=== PATIENT | male | born 1975 | race Caucasian/White ===

== ENCOUNTER 2017-09-29 09:12 | Observation (INO) ==
--- NOTE | 2017-09-29 09:32 | Emergency Department Note ---
Disposition Clinical Impression: TIA (transient ischemic attack) Qualifiers: Transient cerebral ischemia type: unspecified Qualified Code(s): G45.9 - Transient cerebral ischemic attack, unspecified Disposition: Admitted As Inpatient Condition: Good Referrals: NONE,PCP [Primary Care Provider] - Forms: ED Satisfaction Letter Time of Disposition: 10:12 Neuro HPI - General Chief Complaint: ED Neuro Symptoms/Deficit Stated Complaint: Left sided numbness Time Seen by Provider: 09/29/17 09:19 Source: patient Mode of arrival: ambulatory Limitations: no limitations Nursing Notes Reviewed: Yes Vital Signs Reviewed: Yes - History of Present Illness HPI Narrative: 42-year-old with a onset of left arm numbness left facial numbness that started 45 minutes prior to arrival. Denies any weakness. Denies any visual changes. Onset of Symptoms Date: 09/29/17 Onset of Symptoms Time: 08:30 Timing confirmed by: spouse Location: left face ((), left arm (Numbness) Symptoms Improving: No Improves with: none Worsens with: none Context: sudden onset On Anticoagulants: No Associated symptoms: Reports: denies other symptoms Treatments Prior to Arrival: none - Related Data Allergies/Adverse Reactions: Allergies Allergy/AdvReac Type Severity Reaction Status Date / Time No Known Allergies Allergy Verified 09/29/17 09:27 All systems ED: reviewed and negative except as stated. Constitutional: Denies: fever, chills, weakness, weight change Eyes: Denies: eye pain, eye discharge, vision change ENT ED: Denies: ear pain, throat pain, dental pain, hearing loss, epistaxis, congestion, dysphagia Cardiovascular: Denies: chest pain, palpitations, dyspnea on exertion, edema, syncope Respiratory: Denies: cough, dyspnea, wheezes, hemoptysis, stridor Gastrointestinal: Denies: abdominal pain, nausea, vomiting, diarrhea, constipation, hematemesis, melena, hematochezia Genitourinary: Denies: urgency, dysuria, frequency, hematuria Musculoskeletal: Denies: back pain, neck pain, arthralgia, myalgia Integumentary: Denies: rash, abrasion, lesions Neurological: Reports: headache, numbness. Denies: weakness, paresthesias, confusion, abnormal gait, vertigo Psychiatric: Denies: anxiety, depression, suicidal thoughts, homicidal thoughts , auditory hallucinations, visual hallucinations Endocrine: Denies: fatigue Hematological/Lymphatic: Denies: easy bleeding, easy bruising Allergic/Immunologic: Denies: facial swelling, urticaria Physical Exam - General Limitations: no limitations - Head Head exam: atraumatic, normocephalic, normal inspection - Eye Eye exam: Present: normal appearance, PERRL, EOMI - ENT ENT exam: normal exam, normal oropharynx, mucous membranes moist - Neck Neck exam: Present: normal inspection, full ROM, trachea midline - Chest Chest inspection: Present: normal inspection, symmetric chest wall rise - Respiratory Respiratory exam: Present: normal lung sounds bilaterally - Cardiovascular Cardiovascular exam: Present: regular rate, normal rhythm, normal heart sounds - Abdominal Exam Abdominal exam: Present: soft, Non-Tender. Absent: tenderness, distention, guarding, rebound, rigidity - Extremities Exam Extremities exam: Present: normal inspection, full ROM. Absent: tenderness, pedal edema - Expanded Lower Extremity Exam Neurovascular/Tendon exam: Absent: motor deficit, sensory deficit, tendon deficit - Back Exam Back exam: Present: normal inspection, full ROM. Absent: tenderness - Neurological Exam Neurological exam: Present: alert, oriented X3, motor sensory deficit (Numbness of the left arm and left face.) - Psychiatric Psychiatric exam: Present: normal affect, normal mood - Skin Skin exam: Present: warm, dry, intact, normal color Course - Reevaluation(s) Reevaluation #1: Or-year-old who comes in complaining of numbness in the left arm and left side of the face. Stroke alert was initiated CT scan was negative. [facility] neurology did not feel the patient metastases TPA criteria. They recommended admission for evaluation possible TIA. Time: 11:12 - Consultations Consultation #1: Stroke alert initiated examine the patient from [facility] and did not feel the patient met criteria for TPA. In addition admission and evaluation for TIA versus stroke. Time: 10:09 Consultation #2: Discussed with , admit. Time: 11:12 Vital Signs Temperature 98.5 F 09/29/17 09:20 Pulse Rate 84 09/29/17 09:20 Respiratory Rate 20 09/29/17 09:20 Blood Pressure 143/100 09/29/17 09:20 O2 Sat by Pulse Oximetry 98 09/29/17 09:20 Temperature 98.5 F 09/29/17 09:20 Pulse Rate 81 09/29/17 10:28 Respiratory Rate 20 09/29/17 10:28 Blood Pressure 144/85 09/29/17 10:28 O2 Sat by Pulse Oximetry 100 09/29/17 10:28 Oxygen Delivery Oxygen Delivery Room Air Neuro Symptoms/Deficit - Lab Data Result diagrams: 09/29/17 10:22 09/29/17 10:22 Lab Results 09/29/17 09/29/17 09/29/17 Range/Units 10:19 10:22 10:22 WBC 8.1 (4.3-11.1) K/mcL RBC 5.29 (4.19-5.50) M/mcL Hgb 15.3 (12.9-16.9) g/dL Hct 46.1 (37.5-50.1) % MCV 87.1 (83.0-100.0) fL MCH 28.9 (28.0-33.3) pg MCHC 33.2 (31.6-35.5) g/dL RDW 12.4 (11.5-14.5) % Plt Count 335 (140-400) K/mcL MPV 10.4 (9.4-12.4) fL Immature Gran % 0.5 (0-4) % Seg Neutrophils % 68.6 % Lymphocytes % 24.3 % Monocytes % 5.6 % Eosinophils % 0.5 % Basophils % 0.5 % Neutrophils # 5.6 (1.6-8.9) K/mcL Lymphocytes # 2.0 (0.6-4.6) K/mcL Monocytes # 0.5 (0.0-1.3) K/mcL Eosinophils # 0.0 (0.0-0.6) K/mcL Basophils # 0.0 (0.0-0.2) K/mcL Nucleated RBCs/100 WBC 0.4 H (0) /100 WBC PT 10.5 (9.4-12.1) Seconds INR 1.0 APTT 30.1 (26.0-36.0) Seconds Sodium (136-145) mEq/L Potassium (3.5-5.1) mEq/L Chloride (98-107) mEq/L Carbon Dioxide (23-29) mEq/L BUN (6-20) mg/dL Creatinine (0.70-1.30) mg/dL Est GFR ( Amer) (> 60) Est GFR (Non-Af Amer) (> 60) BUN/Creatinine Ratio (6-26) Glucose (70-105) mg/dL POC Glucose 107 H (58-89) Calculated Osmolality (280-300) Calcium (8.6-10.3) mg/dL Troponin I (< 0.04) ng/mL 09/29/17 09/29/17 Range/Units 10:22 10:22 WBC (4.3-11.1) K/mcL RBC (4.19-5.50) M/mcL Hgb (12.9-16.9) g/dL Hct (37.5-50.1) % MCV (83.0-100.0) fL MCH (28.0-33.3) pg MCHC (31.6-35.5) g/dL RDW (11.5-14.5) % Plt Count (140-400) K/mcL MPV (9.4-12.4) fL Immature Gran % (0-4) % Seg Neutrophils % % Lymphocytes % % Monocytes % % Eosinophils % % Basophils % % Neutrophils # (1.6-8.9) K/mcL Lymphocytes # (0.6-4.6) K/mcL Monocytes # (0.0-1.3) K/mcL Eosinophils # (0.0-0.6) K/mcL Basophils # (0.0-0.2) K/mcL Nucleated RBCs/100 WBC (0) /100 WBC PT (9.4-12.1) Seconds INR APTT (26.0-36.0) Seconds Sodium 137 (136-145) mEq/L Potassium 4.4 (3.5-5.1) mEq/L Chloride 105 (98-107) mEq/L Carbon Dioxide 25 (23-29) mEq/L BUN 11 (6-20) mg/dL Creatinine 1.16 (0.70-1.30) mg/dL Est GFR ( Amer) > 60 (> 60) Est GFR (Non-Af Amer) > 60 (> 60) BUN/Creatinine Ratio 9 (6-26) Glucose 123 H (70-105) mg/dL POC Glucose (58-89) Calculated Osmolality 285 (280-300) Calcium 9.2 (8.6-10.3) mg/dL Troponin I < 0.03 (< 0.04) ng/mL NIH Stroke Scale - Level of Consciousness LOC: Alert - LOC Questions LOC Questions: Answers both correctly - LOC Commands LOC Commands: Performs both correctly - Best Gaze Best Gaze: Normal - Visual Visual: No visual loss - Facial Palsy Facial Palsy: Normal - Motor Arms Motor Arm-Left: No drift for 10 seconds Motor Arm-Right: No drift for 10 seconds - Motor Legs Motor Leg-Left: No drift for 5 seconds Motor Leg-Right: No drift for 5 seconds - Limb Ataxia Limb Ataxia: Normal, No Ataxia - Sensory Sensory: Mild to moderate loss, "not as sharp" - Best Language Best Language: No aphasia - Dysarthria Dysarthria: Normal - Extinction and Inattention Extinction and Inattention: Normal - NIHSS Total Score NIHSS Total Score: 1 TPA Checklist - Eligibilty for IV tPA 1. LKW equal to or less than 4.5 hours be before treatment: Yes 2. Clinical diagnosis of ischemic stroke causing deficit: Yes - LKW: 3-4.5 hrs Add. Warnings/Precautions Patient/family understanding: The patient/family members have been counseled and understood the risk, benefit , and alternatives of treatment. Critical Care Time Critical Care Time: Yes Total Critical Care Time: 30 Attestation: The high probability of a clinically significant, sudden or life threatening deterioration of the [neurological] system(s) required my full and direct attention, intervention and personal management. The aggregate critical care time was [30] minutes. This time is in addition to time spent performing reported procedures but includes the following: [x] Data Review and interpretation [x] Patient assessment and monitoring of vital signs [x] Documentation [x] Medication orders and management
[2017-09-29 10:43] LABS: Basophils % 0.5 %; Eosinophils % 0.5 %; Hematocrit 46.1 % (37.5-50.1); Hemoglobin 15.3 g/dL (12.9-16.9); Immature Granulocytes % 0.5 % (0-4); Lymphocytes % 24.3 %; Mean Corpuscular HGB Conc 33.2 g/dL (31.6-35.5); Mean Corpuscular Hemoglobin 28.9 pg (28.0-33.3); Mean Corpuscular Volume 87.1 fL (83.0-100.0); Mean Platelet Volume 10.4 fL (9.4-12.4); Monocytes # 0.5 K/mcL (0.0-1.3); Monocytes % 5.6 %; Neutrophils # 5.6 K/mcL (1.6-8.9); Nucleated Red Blood Cells 0.4 /100 WBC (0); Platelet Count 335 K/mcL (140-400); Red Blood Count 5.29 M/mcL (4.19-5.50); Red Cell Distribution Width 12.4 % (11.5-14.5); Segmented Neutrophils % 68.6 %
[2017-09-29 10:57] LABS: Prothrombin Time 10.5 Seconds (9.4-12.1)
[2017-09-29 10:59] LABS: BUN/Creatinine Ratio 9 (6-26); Blood Urea Nitrogen 11 mg/dL (6-20); Calcium 9.2 mg/dL (8.6-10.3); Carbon Dioxide 25 mEq/L (23-29); Chloride 105 mEq/L (98-107); Glucose 123 mg/dL (70-105); Osmolality,Calculated 285 (280-300); Potassium 4.4 mEq/L (3.5-5.1); Sodium 137 mEq/L (136-145); eGFR For African Americans > 60 (> 60); eGFR For Non-African Americans > 60 (> 60)
[2017-09-29 11:00] LABS: Activated Partial Thrombo Time 30.1 Seconds (26.0-36.0)
[2017-09-29] MEDS ORDERED: Naloxone 0.4 MG/ML INJ IVP PRN (11:50)
--- NOTE | 2017-09-29 12:02 | Internal Med History&Physical ---
<Marvin Hallman - Last Filed: 09/29/17 14:48> Date of Encounter: 09/29/17 Time of Encounter: 11:54 Assessment and Plan (1) TIA (transient ischemic attack) Current visit: Yes Status: Acute Presents with acute onset of left facial and left extremity numbness and tingling without extremity weakness. All vital signs stable at this time, symptoms have now subsided. I suspect he may have had a TIA. No prior history of CVA/TIA. [facility] stroke team was consulted while in the emergency department and decided the patient was not a candidate for thrombolysis. -Stat CT negative for acute intracranial abnormalities -MRI head/brain without contrast this afternoon -BL Carotid doppler -TTE now -Start ASA -Start statin 40 mg now -CBC, BMP,, Lipid panel in am -Initial NIHSS 1 -Neuro checks q-shift -ambulate TID for DVT prophylaxis Qualifiers: Transient cerebral ischemia type: unspecified Qualified Code(s): G45.9 - Transient cerebral ischemic attack, unspecified Internal Medicine - H&P: HPI Chief complaint: lt side numbness and tingling Admitted From: Home Plans for Post Hospital Care: Home History of present illness: Mr. Frazier is a 42 year old male with no known past medical history. Presents today the left sided numbness and tingling and sharp chest pain which began approximately 45 minutes [employer]. His symptoms have subsided as of my assessment. He reports that this morning he began experiencing numbers and tingling in his LUE and Lt face as well as non-exertional, sharp intermittent chest pain. He reports that the chest pain was not exacerbated with activity and did not improve with rest. Reporting that it was sharp and intermittent and caused mild shortness of breath. He has not prior h/o TIA/CVA, and also no family history. No h/o CAD or [place]. He admits to h/a which began last night and has since subsided, blurred vision and n/t on LUE and LT fact. He denies any gait ataxia, slurred speech, facial droop, extremity weakness, fevers, chills, or constitutional symptoms. Past Med Surg Social Fam HX - Past Medical History Medical history: no medical history Psychiatric history: no psych history - Social History Smoking Status: Former smoker Smokeless Tobacco Status: Yes Alcohol use: occasionally Drug use: none - Additional Family History Additional family history: Reports no family history Internal Medicine - H&P: Meds No Known Home Drugs 09/29/17 [History] 3 Allergy/AdvReac Type Severity Reaction Status Date / Time No Known Allergies Allergy Verified 09/29/17 09:27 All Systems PM: A 10-system review of systems was performed and is negative for pertinent findings except as documented above in the HPI. - Constitutional Constitutional: no chills, no fever(s), no night sweats - EENT Eyes: no change in vision, no discharge, no pain, no photophobia Ears: no ear discharge, no ear pain, no tinnitus Nose, mouth and throat: no dysphagia, no nasal discharge, no neck pain, no sore throat - Cardiovascular Cardiovascular ROS IM: no chest pain, no diaphoresis, no dyspnea, no lightheadedness, no palpitations, no syncope - Respiratory Respiratory: no cough, no dyspnea, no wheezing, no excessive phlegm production - Gastrointestinal Gastrointestinal: no abdominal pain, no diarrhea, no hematemesis, no hematochezia, no melena, no nausea, no vomiting - Musculoskeletal Musculoskeletal ROS IM: no numbness, no tingling - Integumentary Integumentary IM: no rash, no unusual bruising - Neurological Neurological ROS: as per HPI, headache(s), numbness, tingling, no abnormal gait , no abnormal hearing, no abnormal movements, no abnormal speech, no behavioral changes, no confusion, no convulsions, no dizziness, no focal weakness, no lack of coordination, no loss of vision, no memory loss, no tremor(s), no vertigo, no weakness - Hematologic/Lymphatic Hematologic/Lymphatic: no easy bruising - Constitutional Vitals: Temp Pulse Resp BP Pulse Ox 98.5 F 74 20 129/86 97 09/29/17 09:20 09/29/17 11:30 09/29/17 11:30 09/29/17 11:30 09/29/17 11:30 General appearance: Present: cooperative, A&O X 3, no acute distress, answers questions appropriately - Head Head exam: Present: atraumatic, normocephalic - Eye Eye exam: Present: PERRL, conjuntiva pink, sclera anicteric Pupils: Present: PERRL - Neck Neck exam general surgery: Present: supple, trachea midline. Absent: lymphadenopathy - Respiratory Respiratory exam: Present: CTAB. Absent: accessory muscle use, rales, rhonchi, wheezes - Cardiovascular Cardiovascular exam: Present: RRR, +S1, +S2. Absent: diastolic murmur, gallop, rubs, systolic murmur - GI/Abdominal GI/Abdominal exam: Present: normal bowel sounds, soft, no peritoneal signs. Absent: distended, tenderness - Extremities Exam Extremities exam: Present: warm, radial pulses palpable and symmetrical. Absent : calf tenderness, cyanotic, pedal edema - Neurological Exam Neurological exam: Present: CN II-XII intact, oriented X3, no focal deficits. Absent: pronater drift, facial droop, speech deficit - Skin Skin exam: Present: dry, intact Internal Med - H&P Results - Labs CBC & Chem 7: 09/29/17 10:22 09/29/17 10:22 Labs: Short CBC 09/29/17 Range/Units 10:22 WBC 8.1 (4.3-11.1) K/mcL Hgb 15.3 (12.9-16.9) g/dL Hct 46.1 (37.5-50.1) % Plt Count 335 (140-400) K/mcL Neutrophils # 5.6 (1.6-8.9) K/mcL BMP 09/29/17 10:22 Sodium 137 Potassium 4.4 Chloride 105 Carbon Dioxide 25 BUN 11 Creatinine 1.16 Glucose 123 H Calcium 9.2 Cardiac Enzymes 09/29/17 Range/Units 10:22 Troponin I < 0.03 (< 0.04) ng/mL - EKG Data EKG shows normal: sinus rhythm Rate: tachycardia - EKG Data Prior EKG available for review: no Interpretation IM: other - Impressions ITS Impressions Head CT 09/29/17 09:23 IMPRESSION: 1. No acute intracranial abnormality. These findings were discussed with Dr Gonzalse at 9:50 a.m. 09/29/2017. D/ / Bertin Vasquez MD / Bertin Vasquez MD Interpreting Provider: Bertin Vasquez MD <Mike Che T - Last Filed: 09/29/17 15:03> Date of Encounter: 09/29/17 Internal Medicine - H&P: HPI History of present illness: Mr. Frazier is a 42 year old male All Systems PM: A 10-system review of systems was performed and is negative for pertinent findings except as documented above in the HPI. - Constitutional Vitals: Temp Pulse Resp BP Pulse Ox 98.5 F 79 20 130/86 97 09/29/17 09:20 09/29/17 13:00 09/29/17 13:00 09/29/17 13:00 09/29/17 13:00 Internal Med - H&P Results - Labs CBC & Chem 7: 09/29/17 10:22 09/29/17 10:22 - Attending Attestation Seen and examined independently 42 M patient with L sided numbness which had reseolved at time of review. No deficits neurologically at time of review No risk factors for CVA Agree with TIA work up Rest of details as in HO Hallman documentation
[2017-09-29] MEDS: Aspirin 81 MG TAB.CHEW PO SCH (16:34)
[2017-09-30] MEDS ORDERED: *HR* LORazepam 1 MG TABLET PO ONE (02:13)
[2017-09-30 05:43] LABS: Hematocrit 46.3 % (37.5-50.1); Hemoglobin 15.1 g/dL (12.9-16.9); Mean Corpuscular HGB Conc 32.6 g/dL (31.6-35.5); Mean Corpuscular Hemoglobin 28.9 pg (28.0-33.3); Mean Corpuscular Volume 88.7 fL (83.0-100.0); Mean Platelet Volume 10.5 fL (9.4-12.4); Platelet Count 290 K/mcL (140-400); Red Blood Count 5.22 M/mcL (4.19-5.50); Red Cell Distribution Width 12.5 % (11.5-14.5)
[2017-09-30 06:03] LABS: BUN/Creatinine Ratio 8 (6-26); Blood Urea Nitrogen 9 mg/dL (6-20); Calcium 8.7 mg/dL (8.6-10.3); Carbon Dioxide 26 mEq/L (23-29); Chloride 107 mEq/L (98-107); Cholesterol 144 mg/dL (< 200); Glucose 113 mg/dL (70-105); HDL Cholesterol 36 mg/dL (40-59); LDL Cholesterol,Calculated 98 mg/dL (0-99); Osmolality,Calculated 287 (280-300); Potassium 4.1 mEq/L (3.5-5.1); Sodium 139 mEq/L (136-145); Triglycerides 52 mg/dL (< 150); eGFR For African Americans > 60 (> 60); eGFR For Non-African Americans > 60 (> 60)
[2017-09-30] MEDS: Aspirin 81 MG TAB.CHEW PO SCH (08:10)
[2017-09-30 11:30] VITALS: BP 135/75
--- NOTE | 2017-09-30 16:07 | Neurology - Consult Note ---
<LesterLazaro Durham - Last Filed: 09/30/17 16:04> Date of Encounter: 09/30/17 Time of Encounter: 16:09 Assessment and Plan (1) Complicated migraine Status: Acute Patient appears to have common migraine with headache associated with neurologic symptoms that resolved on the room. Neuro imaging including MRI and CT head were unremarkable. Carotid Dopplers were also preliminarily read as negative. TIAs in the differential however this is much less likely given his relatively young age and lack of risk factors including diabetes and hypertension. He does report frequent headaches so we would recommend starting low-dose amitriptyline 25 mg daily at bedtime. Patient can follow-up in 3-4 weeks in the outpatient neurology clinic. History of Present Illness Chief complaint: Numbness/tingling HPI: Mr. Frazier is a 42 year old male with no significant medical history who presents with left arm and face numbness and tingling. Patient states that yesterday the symptoms came on suddenly while he was driving. He states that it felt like his arms going numb from where he rested his elbow on the armrest however his symptoms did not go away when he reposition his arm. He states this was associated with a headache. He states the symptoms lasted about 3 hours and resolved spontaneously. He states he has never had these symptoms before. He denies any weakness or motor difficulty. He denies any speech changes. He reports that he has headaches about once a month but he is a never had numbness and tingling associated with these. He denies any family history of neurologic or headache disorders. Past Med Surg Social Fam HX - Past Medical History Medical history: no medical history Psychiatric history: no psych history - Social History Smoking Status: Former smoker Smokeless Tobacco Status: Yes Alcohol use: occasionally Drug use: none - Family History Mother Hx Family Cardiac Disorders: Yes Medications and Allergies Amitriptyline [Elavil] 25 mg PO HS #30 tablet 09/30/17 [Rx] 3 Allergy/AdvReac Type Severity Reaction Status Date / Time No Known Allergies Allergy Verified 09/29/17 09:27 All Systems: A 10-system review of systems was performed and is negative for pertinent findings except as documented above in the HPI. Physical Examination - Vital Signs Vital Signs: Initial Vital Signs Temp Pulse Resp BP Pulse Ox 98.5 F 84 20 143/100 98 09/29/17 09:20 09/29/17 09:20 09/29/17 09:20 09/29/17 09:20 09/29/17 09:20 - Constitutional General appearance: comfortable - Neurologic Sensorimotor examination: intact Detailed motor examination: grossly full strength in all extremities Motor examination - right side: 5/5: deltoids, biceps, triceps, wrist flexion, wrist extension, sweetbread trimmer, hip flexors, tibialis Anterior, quadriceps, toe extension (EHL), plantarflexion Motor examination - left side: 5/5: deltoids, biceps, triceps, wrist flexion, wrist extension, hip flexors, sweetbread trimmer, quadriceps, tibialis Anterior, toe extension (EHL), plantarflexion Detailed sensory examination: intact, light touch Reflexes: Biceps: 2+, Triceps: 2+, Brachioradialis: 2+, Patella: 2+, Achilles: 2 + Mental Status Examination: awake, alert, oriented to person, oriented to place, oriented to time, follows commands appropriately, answers questions appropriately, no agnosia, no aphasia, no aproxia Cranial nerve examination: PERRL, EOMI, visual mosquera intact, sensory to face intact, mastication intact, no facial asymmetry is present, no dysarthria, hearing is intact symmetrically, soft palate elevates bilaterally upon phonation , flexes SCM and trapezius muscles symmetrically with full power, tongue protrudes midline, no atrophy or facial fasiculations present Cerebellar examination: performs finger to nose and heel to salazar symmetrically without ataxia Results - Laboratory Findings CBC and BMP: 09/30/17 05:33 09/30/17 05:33 Abnormal lab findings: Abnormal lab results Nucleated RBCs/100 WBC 0.4 /100 WBC (0) H 09/29/17 10:22 Glucose 113 mg/dL (70-105) H 09/30/17 05:33 POC Glucose 107 (58-89) H 09/29/17 10:19 HDL Cholesterol 36 mg/dL (40-59) L 09/30/17 05:33 Consult Discharge Plan - Plan Instructions: Amitriptyline (By mouth), Transient Ischemic Attack (DC), Migraine Headache (DC), Migraine Headache (GEN) Referrals: Mckinley Mccabe MD [Partnered Physician] - (please call the office in one week for a f/u appointment) NONE,PCP [Primary Care Provider] - Prescriptions: Amitriptyline [Elavil] 25 mg PO HS #30 tablet <Mckinley Mccabe I - Last Filed: 10/01/17 09:18> Date of Encounter: 09/30/17 History of Present Illness HPI: Mr. Frazier is a 42 year old male All Systems: A 10-system review of systems was performed and is negative for pertinent findings except as documented above in the HPI. Physical Examination - Vital Signs Vital Signs: Initial Vital Signs Temp Pulse Resp BP Pulse Ox 98.5 F 84 20 143/100 98 09/29/17 09:20 09/29/17 09:20 09/29/17 09:20 09/29/17 09:20 09/29/17 09:20 Results - Laboratory Findings CBC and BMP: 09/30/17 05:33 09/30/17 05:33 Abnormal lab findings: Abnormal lab results Nucleated RBCs/100 WBC 0.4 /100 WBC (0) H 09/29/17 10:22 Glucose 113 mg/dL (70-105) H 09/30/17 05:33 POC Glucose 107 (58-89) H 09/29/17 10:19 HDL Cholesterol 36 mg/dL (40-59) L 09/30/17 05:33 - Attending Attestation I examined this patient and my medical decision-making was reviewed with the Resident Physician on 09/30/17. I agree with the documented findings, disposition and treatment plan as described except to the extent set forth below. Patient's symptoms and history seems to be consistent with complicated migraine He did have a history of migraine attacks and sees 1 or 2 per month and now he has this event without any radiology findings to be suggestive of stroke or any other intracranial abnormality At the same time no risk factors for a stroke or TIA Patient may benefit from preventative agents for this frequent migraine attacks he is also complaining of generalized anxiety perhaps amitriptyline would be a better choice to take it at bedtime He can follow patient in outpatient in neurology in the next few weeks Discussed with the patient and primary team Mckinley Mccabe MD
--- NOTE | 2017-09-30 16:30 | Discharge Summary ---
Date of Encounter: 09/30/17 Time of Encounter: 16:23 - Discharge Diagnosis (1) Complicated migraine Priority: Primary Status: Acute Comments: Resulted with left face and upper extremity weakness and paresthesias. Symptoms resolved in the ED. Head CT nonacute. Brain MRI without acute infarct. Bilateral carotid Dopplers negative, TTE with preserved EF, no valvular abnormalities. Evaluated by neurology who suspected complicated migraine. No symptom recurrence while inpatient and requested discharge home. Start home on amitriptyline per neurology recommendations. Follow-up with neurology within 1-2 weeks. - Discharge Medications Prescriptions: Amitriptyline [Elavil] 25 mg PO HS #30 tablet Home Medications: Amitriptyline [Elavil] 25 mg PO HS #30 tablet 09/30/17 [Rx] Allergies/Adverse Reactions: 3 Allergy/AdvReac Type Severity Reaction Status Date / Time No Known Allergies Allergy Verified 09/29/17 09:27 Procedures/tests Complete & Pending: Procedures Performed prior 72 hours Category Date Time Status ECG 12 lead ECG [ECG] Routine Y 09/29/17 09:19 Completed Date of admission: 09/29/17 14:57 Primary care physician: PCP NONE Consults: 09/30/17 14:14 Consult to Neurology [CONS] Routine Consulting Provider: Neurology [facility] Reason for Consult: left face, extremity numbness and tingling Call Completed: Yes Discharging clinician: Araceli Worthington Anticipated date of discharge: 09/30/17 - Patient Status Disposition: Home, Self-Care Condition: Good Functional capacity at discharge: independent ambulation Overall status at discharge: patient is back to baseline - Discharge Instructions Instructions: Amitriptyline (By mouth), Transient Ischemic Attack (DC), Migraine Headache (DC), Migraine Headache (GEN) Follow Up With: NONE,PCP [Primary Care Provider] - Mckinley Mccabe MD [Partnered Physician] - (please call the office in one week for a f/u appointment) - Diet and Activity Activity: return to work once cleared by your PCP/specialist Diet: advance to your usual diet, regular diet Interval History: Patient presented to the emergency room for evaluation of left arm and face numbness and tingling. He stated the symptoms occurred [place] He stated he felt like his arm is going numb from where he rested his arm on the arm rest but they did not go away when he reposition his arm. He also stated associated with a headache. He stated his symptoms lasted 3 hours and resolved spontaneously. He said he never had these symptoms before. He denied any weakness, motor Nicolás difficulty, or speech changes. He states he has headaches about once a month but never had these associated symptoms. Head CT revealed no acute intracranial abnormalities. MRI head and brain revealed no acute intracranial abnormality. Echocardiogram reviewed report with no abnormal findings. Neurology was consulted and saw the patient. Carotid Dopplers were primarily early read as negative. No TIAs in the past. Neurology recommended starting low-dose amitriptyline 25 mg daily at bedtime and follow up in 3-4 weeks at the outpatient neurology clinic Hospital course: Mr. Frazier is a 42 year old male - Time Spent with Patient Total time spent providing and/or coordinating discharge services: Less than 30 minutes - Constitutional Vitals: Temp Pulse Resp BP Pulse Ox 97.8 F 80 18 135/75 98 09/30/17 11:28 09/30/17 11:28 09/30/17 11:28 09/30/17 11:28 09/30/17 11:28 General appearance: Present: cooperative, A&O X 3, no acute distress, answers questions appropriately - Head Head exam: Present: atraumatic, normocephalic - Eye Eye exam: Present: conjuntiva pink, sclera anicteric - Neck Neck exam general surgery: Present: supple, trachea midline. Absent: lymphadenopathy - Respiratory Respiratory exam: Present: CTAB. Absent: accessory muscle use, rales, rhonchi, wheezes - Cardiovascular Cardiovascular exam: Present: RRR, +S1, +S2. Absent: diastolic murmur, gallop, rubs, systolic murmur - GI/Abdominal GI/Abdominal exam: Present: normal bowel sounds, soft, no peritoneal signs. Absent: distended, tenderness - Extremities Exam Extremities exam: Present: warm, radial pulses palpable and symmetrical. Absent : calf tenderness, cyanotic, pedal edema - Neurological Exam Neurological exam: Present: CN II-XII intact, oriented X3, no focal deficits. Absent: pronater drift, facial droop, speech deficit - Skin Skin exam: Present: dry, intact - Stroke Contraindication Rehab Services Not Assessed: Symptoms Resolved
--- NOTE | 2017-09-30 17:21 | Electrocardiograph Report ---
[place] [id number] Test Date: 2017-09-29 Pat Name: Octavio Frazier Department: 104 Room: 3B Gender: M [employer] R[employer] Clerk: : [id number] Requested By: Opal Coombs Order Number: [id number] Reading MD: Oscar Cheung MD Measurements Intervals [place] Rate: 104 P: 38 CA: 149 QRS: 10 QRSD: 80 T: 31 QT: 349 QTc: 410 Interpretive Statements SINUS TACHYCARDIA BASELINE ARTIFACT Electronically Signed On 09-30-2017 17:19:28 EST by Oscar Cheung MD
== END 2017-09-30 18:28 | disposition home or self-care (01) ==
LOC: 3BNU 09:12 → EMEROO 09:12 → 3BNU 15:22
PROVIDERS: ADMIT Nurse Practitioner; ATTEND Registered Nurse